=== PATIENT | female | born 1965 | race Caucasian/White ===

== ENCOUNTER 2017-07-06 16:42 | Emergency (ER) | payer OTHER, SELFPAY ==
[2017-07-06 17:16] VITALS: O2SAT 100
--- NOTE | 2017-07-06 17:58 | ED PDOC ---
Lower Extremity Pain/Injury Time Seen by Provider: 07/06/17 17:39 Chief Complaint (Nursing): Lower Extremity Problem/Injury Chief Complaint (Provider): left knee and hip pain History Per: Patient History/Exam Limitations: no limitations Onset/Duration Of Symptoms: Days (x4) Current Symptoms Are (Timing): Still Present Additional Complaint(s): 52 year old female presents to the emergency department complaining of left knee pain that radiates up to her left hip, onset four days. Patient denies trauma or injury, but states she is on her feet a lot at work. She reports she has not taken anything for the pain, nor has she noticed any swelling. PMD: [facility] Past Medical History Reviewed: Historical Data, Nursing Documentation, Vital Signs Vital Signs: Last Vital Signs Temp 98.2 F 07/06/17 17:14 Pulse 83 07/06/17 17:14 Resp 20 07/06/17 17:14 BP 123/71 07/06/17 17:14 Pulse Ox 100 07/06/17 17:14 - Medical History PMH: No Chronic Diseases - Surgical History Surgical History: No Surg Hx - Family History Family History: States: No Known Family Hx - Living Arrangements Living Arrangements: With Family - Social History Current smoker - smoking cessation education provided: No Alcohol: None Drugs: Denies - Home Medications Home Medications: Ambulatory Orders Medication Instructions Recorded Cyclobenzaprine [Cyclobenzaprine 10 mg PO TID PRN #20 tab 07/06/17 HCl] Naproxen [Naprosyn] 500 mg PO BID #20 tab 07/06/17 - Allergies Allergies/Adverse Reactions: Allergies Allergy/AdvReac Type Severity Reaction Status Date / Time No Known Allergies Allergy Verified 07/06/17 17:14 Wells Criteria for PE - Wells Criteria for Pulmonary Embolism Clinical Signs and Symptoms of DVT: No P.E is #1 Diagnosis, or Equally Likely: No Heart Rate >100: No Immobilization at least 3 days;Surgery previous 4 weeks: No Previous, objectively diagnosed PE or DVT: No Hemoptysis: No Malignancy w/treatment within 6 months, or palliative: No Total Score: 0 Review of Systems ROS Statement: Except As Marked, All Systems Reviewed And Found Negative Musculoskeletal: Positive for: Other (left knee and hip pain, no trauma or injury) Physical Exam - Reviewed Nursing Documentation Reviewed: Yes Vital Signs Reviewed: Yes - Physical Exam Appears: Positive for: Well, Non-toxic, No Acute Distress Head Exam: Positive for: ATRAUMATIC, NORMAL INSPECTION, NORMOCEPHALIC Skin: Positive for: Normal Color. Negative for: Rash Eye Exam: Positive for: Normal appearance Neck: Positive for: Normal, Painless ROM Cardiovascular/Chest: Positive for: Regular Rate, Rhythm Respiratory: Positive for: Normal Breath Sounds Back: Negative for: L CVA Tenderness, R CVA Tenderness, Vertebral Tenderness Extremity: Positive for: Other (full rom left hip and knee, pain illicited with movement of left leg. No calf swelling or tenderness, no proximal thigh swelling or tenderness, sensation intact) Neurologic/Psych: Positive for: Alert, Oriented, Gait (steady) - ECG O2 Sat by Pulse Oximetry: 100 (RA) Pulse Ox Interpretation: Normal - Other Rad Left hip, pelvis and left knee x-rays X-Ray: Interpreted by Me, Viewed By Me X-Ray Interpretation: no fx, no dis Medical Decision Making Medical Decision Making: Time: 17:57 Initial Impression: 52 year old female with left hip and knee pain Initial Plan: --Left Knee X-ray --Motrin 600mg PO --Tylenol 975mg PO --Left Hip w/ Pelvis X-ray Patient is aware of x-ray results, all questions answered. Prescription given for naprosyn and flexeril for pain control. Patient was referred to clinic for follow up. Scribe Attestation: Documented by Vangie Henry, acting as a scribe for Fariba Gamboa PA-C. Provider Scribe Attestation: All medical record entries made by the Scribe were at my direction and personally dictated by me. I have reviewed the chart and agree that the record accurately reflects my personal performance of the history, physical exam, medical decision making, and the department course for this patient. I have also personally directed, reviewed, and agree with the discharge instructions and disposition. Disposition - Clinical Impression Clinical Impression: Hip pain, Knee pain - Patient ED Disposition Is Patient to be Admitted: No Counseled Patient/Family Regarding: Studies Performed, Diagnosis, Need For Followup, Rx Given - Disposition Referrals: [facility] [Outside] [facility] [email or web address] [facility] [Outside] Disposition: Routine/Home Disposition Time: 19:41 Condition: STABLE Additional Instructions: Ice, rest and elevate affected area. Take rx meds as directed as needed for pain. Follow up in 2-3 days with clinic. Prescriptions: Cyclobenzaprine [Cyclobenzaprine HCl] 10 mg PO TID PRN #20 tab PRN Reason: Muscle Spasm Naproxen [Naprosyn] 500 mg PO BID #20 tab Instructions: Hip Pain, Knee Pain (DC) Forms: [facility] (Citizen Of [place]), [facility] ED School/Work Excuse, [employer] (Polish) Print Language: FRISIAN
[2017-07-06 19:55] VITALS: BP 127/81; PULSE 78; RESP 15; TEMP 98.7
--- NOTE | 2017-07-07 08:38 | RAD ---
PROCEDURE: Left Knee Radiographs. HISTORY: Pain. COMPARISON: None. FINDINGS: BONES: Bone alignment and mineralization are normal. There is no acute displaced fracture or bone destruction. JOINTS: Normal. No osteoarthritis. JOINT EFFUSION: None. OTHER FINDINGS: None. IMPRESSION: No acute fracture or dislocation.
--- NOTE | 2017-07-07 08:39 | RAD ---
PROCEDURE: Left Hip X-ray Radiographs. HISTORY: Pain COMPARISON: None. FINDINGS: BONES: The pelvic ring is intact. Bone alignment and mineralization are normal. There is no acute displaced fracture or bone destruction. JOINTS: Normal. SOFT TISSUES: Normal. OTHER FINDINGS: None. IMPRESSION: No acute displaced fracture or dislocation.
== END 2017-07-06 19:55 | disposition home or self-care (01) ==
LOC: H.ER 16:42
DX: M25.562 Pain in left knee (principal); M25.552 Pain in left hip